=== PATIENT | female | born 1975 | race Two or more races ===

== ENCOUNTER 2023-08-24 23:05 | Emergency (ER) | payer MEDICAID ==
[~2023-08-24] VITALS: Ht 160 cm; Wt 61.0 kg
[2023-08-25 00:49] LABS: BASOPHILS % (AUTO) 0.5 % (0.0-2.0); EOSINOPHILS % (AUTO) 0.7 % (1.0-6.0); HEMATOCRIT 36.9 % (36-46); HEMOGLOBIN 11.9 g/dL (12.0-16.0); LYMPHOCYTES # (AUTO) 1.7 K/uL (1.0-4.8); LYMPHOCYTES % (AUTO) 15.4 % (22.0-44.0); MEAN CORPUSCULAR HEMOGLOBIN 26.8 pg (26.0-34.0); MEAN CORPUSCULAR HGB CONC 32.3 G/dL (31.0-37.0); MEAN CORPUSCULAR VOLUME 83 fL (80-100); MONOCYTES # (AUTO) 0.9 K/uL (0.1-1.0); MONOCYTES % (AUTO) 8.1 % (2.0-9.0); NEUTROPHILS # (AUTO) 8.4 K/uL (1.8-7.7); NEUTROPHILS % (AUTO) 75.3 % (40.0-70.0); PLATELET COUNT (AUTO) 241 K/uL (150-450); RED BLOOD CELL COUNT(AUTO) 4.46 MIL/uL (4.00-5.20); RED CELL DISTRIBUTION WIDTH 14.3 % (11.5-14.5); WHITE BLOOD COUNT (AUTO) 11.1 K/uL (4.5-11.0)
[2023-08-25 00:53] LABS: ANION GAP 5 mmol/L (8-16); CALCIUM, TOTAL 9.3 mg/dL (8.8-10.5); CARBON DIOXIDE 29 mmol/L (22-29); CHLORIDE 102 mmol/L (98-107); CREATININE 0.53 mg/dL (0.60-1.30); GLOMERULAR FILTR. RATE CALC > 60 mL/min (>60); GLUCOSE,RANDOM 117 mg/dL (70-110); POTASSIUM 3.6 mmol/L (3.5-5.1); SODIUM SERUM 136 mmol/L (136-145); UREA NITROGEN, BLOOD 15 mg/dL (7-18)
[2023-08-25 01:00] LABS: ALANINE AMINOTRANSFERASE 58 U/L (12-78); ALBUMIN 3.8 g/dL (3.4-5.0); ALKALINE PHOSPHATASE 83 U/L (46-116); ASPARTATE AMINOTRANSFERASE 87 U/L (15-37); BILIRUBIN,TOTAL 0.3 mg/dL (0.1-1.0); LIPASE 46 U/L (16-77); TOTAL PROTEIN, SERUM 7.5 g/dL (6.4-8.2)
[2023-08-25] MEDS ORDERED: SODIUM CHLORIDE 0.9% 1,000 ML IV ONE (01:00)
[2023-08-25] MEDS ORDERED: MORPHINE SULFATE 4 MG/ML SYRINGE IVP ONE (01:00)
[2023-08-25] MEDS: ONDANSETRON HCL 4 MG/2 ML VIAL IVP ONE ×2 (01:04→01:11)
[2023-08-25 01:06] LABS: LACTIC ACID 0.6 mmol/L (0.4-2.0)
[2023-08-25 03:21] VITALS: BP 116/58; PULSE 70; RESP 16; TEMP 98
[2023-08-25 04:22] LABS: APPEARANCE,URINE TURBID (CLEAR); BILIRUBIN,URINE NEGATIVE (NEGATIVE); COLOR,URINE YELLOW (YELLOW); GLUCOSE, URINE (UA) NEGATIVE (NEGATIVE); KETONES,URINE NEGATIVE (NEGATIVE); LEUKOCYTE ESTERASE ,URINE NEGATIVE (NEGATIVE); NITRATE,URINE NEGATIVE (NEGATIVE); OCCULT BLOOD,URINE NEGATIVE (NEGATIVE); PH,URINE 7.5 (5.0-8.0); PROTEIN,URINE NEGATIVE (NEGATIVE); SPECIFIC GRAVITIY, URINE 1.011 (1.003-1.030); UROBILINOGEN,URINE <=1.0 mg/dL (<=1.0)
[2023-08-25] MEDS ORDERED: MAG30ORA11 PO (04:24)
[2023-08-25] MEDS ORDERED: ONDA-104 PO (04:24)
[2023-08-25] MEDS ORDERED: HYDR-4723 PO (04:24)
[2023-08-25 04:38] LABS: AMORPHOUS SEDIMENT,UR Many /LPF (None Seen); BACTERIA,URINE None Seen /HPF (None Seen); RBC,URINE None Seen /HPF (0-2); SQUAMOUS EPITHELIAL CELL,UR None Seen /LPF (None Seen); WBC,URINE None Seen /HPF (0-5)
== END 2023-08-25 04:00 | disposition home or self-care (01) ==
LOC: EMS 23:11
DX: K80.50 Calculus of bile duct without cholangitis or cholecystitis without obstruction (principal); Z98.890 Other specified postprocedural states
CPT/HCPCS: 99285; 80053; 81001; 83605; 83690; 84703; 85025; 36415; 96374; 96361; 76705; J2270; J2405; J7030

== ENCOUNTER 2023-09-27 10:55 | Emergency (ER) | payer MEDICAID ==
[~2023-09-27] VITALS: Ht 160 cm; Wt 59.1 kg
[~2023-09-27 10:55] MED LIST: HYDR-4723 PO; MAG30ORA11 PO; ONDA-104 PO
[2023-09-27 11:02] VITALS: BP 141/92; PULSE 99; RESP 16; TEMP 98.6
[2023-09-27 11:40] LABS: RAPID GROUP A STREP NEGATIVE (NEGATIVE)
[2023-09-27 11:47] LABS: RESPIRATORY SYNCYTIAL VIRS,FIA NEGATIVE (Negative)
[2023-09-27 12:27] LABS: COVID AG,FIA SOURCE NASAL SWAB
[2023-09-27 12:59] LABS: INFLUENZA TYPE A NEGATIVE FOR TYPE A (NEGATIVE); INFLUENZA TYPE B NEGATIVE FOR TYPE B (NEGATIVE)
[2023-09-27 13:40] LABS: SARS-COV2 (COVID) ANTIGEN,FIA Positive (Negative)
[2023-09-27] MEDS ORDERED: NIRM1TAB4 PO (13:56)
[2023-09-27] MEDS ORDERED: IBUP-1492 PO (13:59)
== END 2023-09-27 14:19 | disposition home or self-care (01) ==
LOC: EMS 10:55
DX: U07.1 COVID-19 (principal); Z90.49 Acquired absence of other specified parts of digestive tract; Z98.890 Other specified postprocedural states
CPT/HCPCS: 87420; 87430; 87804; 99283